=== PATIENT | female | born 1945 | race Caucasian/White ===

== ENCOUNTER 2021-07-23 13:08 | Outpatient (RCR) | payer MEDICARE, SELFPAY | END 2021-08-21 23:59 | disposition home or self-care (01) | LOC: WOUND 13:08 | PROVIDERS: Visit Provider Thoracic Surgery (Cardiothoracic Vascular Surgery) | DX: L88 Pyoderma gangrenosum (principal); L97.822 Non-pressure chronic ulcer of other part of left lower leg with fat layer exposed; L97.812 Non-pressure chronic ulcer of other part of right lower leg with fat layer exposed | CPT/HCPCS: 11043; 11046 ==